=== PATIENT | female | born 1995 | race Caucasian/White ===

== ENCOUNTER 2023-07-21 21:24 | Emergency (ER) | payer OTHER ==
[2023-07-21 21:43] VITALS: BP 119/78; PULSE 56; RESP 18; TEMP 98.3; BMI 38.2
[2023-07-21] MEDS ORDERED: ACETAMINOPHEN 500 MG TABLET (FP) PO ONE (22:33)
[2023-07-21] MEDS ORDERED: ACETAMINOPHEN 500 MG TABLET (FP) ONE (22:35)
== END 2023-07-21 22:38 | disposition home or self-care (01) ==
LOC: JERFT 21:24
DX: O99.891 Other specified diseases and conditions complicating pregnancy (principal); K08.89 Other specified disorders of teeth and supporting structures; Z3A.01 Less than 8 weeks gestation of pregnancy
CPT/HCPCS: 99283-25

== ENCOUNTER 2023-07-23 22:00 | Emergency (ER) | payer OTHER ==
[2023-07-23 22:11] VITALS: BP 108/72; PULSE 73; RESP 19; TEMP 98.2; BMI 37.2
[2023-07-24 00:20] LABS: BASO % 0.4 % (0-2.0); EOS % 1.6 % (0-4.5); HEMATOCRIT 34.6 % (32.4-45.2); HEMOGLOBIN 11.3 GM/dL (10.7-15.3); LYMPH % 23.8 % (8-40); MCH 25.4 pg (25.7-33.7); MCHC 32.7 g/dl (32.0-36.0); MEAN CELL VOLUME 77.7 fl (80-96); MEAN PLT VOLUME 7.5 fl (7.5-11.1); MONO % 6.6 % (3.8-10.2); NEUT % 67.6 % (42.8-82.8); PLATELET COUNT 388 10^3/uL (134-434); RBC 4.46 M/mm3 (3.60-5.2); RDW 18.4 % (11.6-15.6); WHITE BLOOD COUNT 9.9 K/mm3 (4.0-10.0)
[2023-07-24 00:21] LABS: EPI CELLS >36 /uL (0-25.1); HYALINE CASTS 4 /uL (0-3.1); INR 1.1 (0.83-1.09); PROTHROMBIN TIME (PATIENT) 12.8 SEC (9.7-13.0); URINE APPEARANCE CLOUDY; URINE BACTERIA 175 /uL (0-1359); URINE BILIRUBIN 1+ (NEGATIVE); URINE COLOR ORANGE; URINE GLUCOSE (UA) NEGATIVE (NEGATIVE); URINE KETONE NEGATIVE (NEGATIVE); URINE LEUK ESTERASE 1+ (NEGATIVE); URINE NITRITE NEGATIVE (NEGATIVE); URINE PROTEIN 2+ (NEGATIVE); URINE RBC 3481 /uL (0-23.9); URINE WBC 170 /uL (0-25.8)
[2023-07-24 00:24] LABS: ACTIVATED PTT 33.5 SECONDS (25.2-36.5)
[2023-07-24] MEDS ORDERED: CEPHALEXIN MONOHYDRATE 500 MG CAPSULE (UD) PO ONE (00:45)
[2023-07-24 00:50] LABS: POTASSIUM 4.9 mmol/L (3.5-5.1)
[2023-07-24] MEDS ORDERED: CEPHALEXIN MONOHYDRATE 500 MG CAPSULE (UD) ONE (00:50)
[2023-07-24 00:51] LABS: CALCIUM 8.4 mg/dL (8.5-10.1)
[2023-07-24 00:52] LABS: ALBUMIN 3.2 g/dl (3.4-5.0); BLOOD UREA NITROGEN 14.4 mg/dL (7-18)
[2023-07-24 00:55] LABS: CREATININE 0.5 mg/dL (0.55-1.3)
[2023-07-24 00:56] LABS: BILIRUBIN,TOTAL 0.4 mg/dL (0.2-1); TOT PROT 7.7 g/dl (6.4-8.2)
== END 2023-07-24 01:33 | disposition home or self-care (01) ==
LOC: JER 22:00
DX: O20.0 Threatened abortion (principal); O23.91 Unspecified genitourinary tract infection in pregnancy, first trimester; R82.71 Bacteriuria; Z3A.01 Less than 8 weeks gestation of pregnancy
CPT/HCPCS: 36415; 76817-TC; 80053; 81003; 84702; 85025; 85610; 85730; 86900; 87086; 99284-25

== ENCOUNTER 2023-07-27 16:19 | Emergency (ER) | payer OTHER ==
[2023-07-27 16:32] VITALS: BP 121/63; PULSE 64; RESP 18; TEMP 98.5; BMI 37.2
== END 2023-07-27 18:47 | disposition home or self-care (01) ==
LOC: FER 16:19 → JERFT 16:19
DX: O20.9 Hemorrhage in early pregnancy, unspecified (principal); Z3A.01 Less than 8 weeks gestation of pregnancy
CPT/HCPCS: 36415; 84702; 99283-25

== ENCOUNTER 2023-07-30 18:19 | Emergency (ER) | payer OTHER ==
[2023-07-30 18:26] VITALS: BP 97/65; PULSE 59; RESP 18; TEMP 99.2; BMI 37.2
[2023-07-30 20:49] LABS: EPI CELLS 9 /uL (0-25.1); HYALINE CASTS 0 /uL (0-3.1); URINE APPEARANCE CLEAR; URINE BACTERIA 127 /uL (0-1359); URINE BILIRUBIN NEGATIVE (NEGATIVE); URINE COLOR YELLOW; URINE GLUCOSE (UA) NEGATIVE (NEGATIVE); URINE KETONE TRACE (NEGATIVE); URINE LEUK ESTERASE NEGATIVE (NEGATIVE); URINE NITRITE NEGATIVE (NEGATIVE); URINE PROTEIN NEGATIVE (NEGATIVE); URINE RBC 3 /uL (0-23.9); URINE UROBILINOGEN 0.2 mg/dL (0.2-1.0); URINE WBC 7 /uL (0-25.8)
== END 2023-07-30 22:40 | disposition home or self-care (01) ==
LOC: JERFT 18:19
DX: O20.9 Hemorrhage in early pregnancy, unspecified (principal); O26.891 Other specified pregnancy related conditions, first trimester; R10.30 Lower abdominal pain, unspecified; Z3A.08 8 weeks gestation of pregnancy
CPT/HCPCS: 36415; 76817-TC; 81003; 84702; 99284-25

== ENCOUNTER 2023-10-31 11:24 | Emergency (ER) | payer OTHER ==
[2023-10-31 11:32] VITALS: BMI 38.0
[2023-10-31 13:56] VITALS: TEMP 98.5
[2023-10-31 15:15] VITALS: BP 99/57; PULSE 73; RESP 20
== END 2023-10-31 15:15 | disposition home or self-care (01) ==
LOC: JERFT 11:24 → JER 11:24
DX: O99.891 Other specified diseases and conditions complicating pregnancy (principal); Z04.3 Encounter for examination and observation following other accident; Z3A.16 16 weeks gestation of pregnancy; W01.0XXA Fall on same level from slipping, tripping and stumbling without subsequent striking against object, initial encounter; Y92.9 Unspecified place or not applicable
CPT/HCPCS: 99283-25

== ENCOUNTER 2024-02-25 18:45 | Inpatient (IN) | payer OTHER ==
[2024-02-25 19:52] LABS: BASO % 0.2 % (0-2.0); EOS % 0.5 % (0-4.5); HEMATOCRIT 33.2 % (32.4-45.2); HEMOGLOBIN 10.7 GM/dL (10.7-15.3); LYMPH % 21.1 % (8-40); MCH 25.6 pg (25.7-33.7); MCHC 32.4 g/dl (32.0-36.0); MEAN CELL VOLUME 79.2 fl (80-96); MEAN PLT VOLUME 6.5 fl (7.5-11.1); MONO % 7.9 % (3.8-10.2); NEUT % 70.3 % (42.8-82.8); PLATELET COUNT 317 10^3/uL (134-434); RBC 4.19 M/mm3 (3.60-5.2); RDW 17.8 % (11.6-15.6); WHITE BLOOD COUNT 6.9 K/mm3 (4.0-10.0)
[2024-02-25 19:53] VITALS: BMI 41.1
[2024-02-25 19:59] LABS: INR 0.95 (0.83-1.09)
[2024-02-25] MEDS: ELECTROLYTE-148 SOLN 1,000 ML IV SCH (20:00)
[2024-02-25 20:02] LABS: ACTIVATED PTT 30.3 SECONDS (25.2-36.5)
[2024-02-25 20:10] LABS: POTASSIUM 3.9 mmol/L (3.5-5.1)
[2024-02-25 20:11] LABS: CALCIUM 9.3 mg/dL (8.5-10.1)
[2024-02-25 20:12] LABS: BLOOD UREA NITROGEN 11.9 mg/dL (7-18)
[2024-02-25 20:15] LABS: CREATININE 0.5 mg/dL (0.55-1.3)
[2024-02-25] MEDS: DINOPROSTONE 10 MG VAGINAL SUPPOSITORY VG ONE (20:15)
[2024-02-25 21:07] LABS: HIV INTERPRETATION NEGATIVE (NEGATIVE)
[2024-02-25] MEDS: INSULIN (LEVEMIR) 100 UNITS/ML UNITS SQ SCH (22:00)
[2024-02-26] MEDS ORDERED: AMPICILLIN - 1 GM in SODIUM CHLORIDE 100 ML IVPB SCH (01:00)
[2024-02-26] MEDS ORDERED: ZOLPIDEM TARTRATE 5 MG TABLET ONE (03:37)
[2024-02-26] MEDS: ZOLPIDEM TARTRATE 5 MG TABLET PO PRN (03:40)
[2024-02-26] MEDS ORDERED: FENTANYL/BUPIVACAINE/NS/PF - PCEA - 50 ML DISP.SYRIN EP ONE ×3 (07:10→16:32)
[2024-02-26] MEDS ORDERED: NALOXONE HCL 0.4 MG/ML VIAL IVPUSH PRN (07:23)
[2024-02-26] MEDS ORDERED: LIDO 2%/EPI 1:200000 PRESRVFRE (20 ML SDVIAL) ONE (07:24)
[2024-02-26] MEDS ORDERED: BUPIVACAINE HCL/PF 0.25% (2.5MG/ML) 10 ML VIAL ONE (07:24)
[2024-02-26] MEDS: FENTANYL/BUPIVACAINE/NS/PF - PCEA - 50 ML DISP.SYRIN EP SCH (07:45)
[2024-02-26] MEDS ORDERED: SODIUM CHLORIDE 100 ML IVPB ONE ×4 (08:02→22:12)
[2024-02-26] MEDS ORDERED: AMPICILLIN SODIUM 2 GM VIAL ONE (08:03)
[2024-02-26] MEDS ORDERED: OXYTOCIN 30 UNITS in 0.9% NS 30 UNIT/500 ML INFUS.BAG IVPB ONE (08:03)
[2024-02-26] MEDS: OXYTOCIN 30 UNITS in 0.9% NS 30 UNIT/500 ML INFUS.BAG IVPB SCH (08:10)
[2024-02-26] MEDS: AMPICILLIN - 2 GM in SODIUM CHLORIDE 100 ML IVPB ONE (08:10)
[2024-02-26] MEDS ORDERED: AMPICILLIN SODIUM 1 GM VIAL ONE ×2 (11:54→15:58)
[2024-02-26] MEDS: AMPICILLIN - 1 GM in SODIUM CHLORIDE 100 ML IVPB SCH (12:01)
[2024-02-26] MEDS ORDERED: OXYTOCIN 20 UNITS in 0.9% NS 20 UNIT/1,000 ML INFUS.BAG IV ONE ×2 (17:59→21:23)
[2024-02-26] MEDS ORDERED: PHENYLEPHRINE HCL 10 MG/1 ML SINGLE DOSE VIAL ONE (18:51)
[2024-02-26] MEDS ORDERED: OXYTOCIN 10 UNITS/ML VIAL ONE (18:51)
[2024-02-26] MEDS ORDERED: ONDANSETRON 4 MG/2 ML VIAL ONE (18:51)
[2024-02-26] MEDS ORDERED: ceFAZolin SODIUM 1 GM VIAL ONE (18:52)
[2024-02-26] MEDS ORDERED: morphine SULFATE/PF 1 MG/2 ML (2cc Syringe - QUVA) ONE (18:52)
[2024-02-26] MEDS ORDERED: KETOROLAC TROMETHAMINE 30 MG/1 ML VIAL ONE (18:52)
[2024-02-26] MEDS ORDERED: FENTANYL CITRATE/PF 50 MCG/ML VIAL ONE (19:20)
[2024-02-26] MEDS ORDERED: ONDANSETRON 4 MG/2 ML VIAL IVPB PRN (20:33)
[2024-02-26] MEDS ORDERED: ACETAMINOPHEN 325 MG TABLET (FP) PO PRN (20:33)
[2024-02-26] MEDS: SODIUM CHLORIDE 1,000 ML IV STA (21:30)
[2024-02-26] MEDS: OXYTOCIN 20 UNITS in 0.9% NS 20 UNIT/1,000 ML INFUS.BAG IV SCH (21:35)
[2024-02-26] MEDS ORDERED: ACETAMINOPHEN INJECTION 100 ML IVPB ONE (21:45)
[2024-02-26] MEDS: ACETAMINOPHEN 1000 MG/100 ML BAG IVPB PRN (21:51)
[2024-02-26] MEDS: SENNOSIDES/DOCUSATE COMBO (SENNA PLUS) TABLET (UD) PO SCH (22:09)
[2024-02-26] MEDS ORDERED: CEFAZOLIN SODIUM 2 GM VIAL ONE (22:12)
[2024-02-26] MEDS: CEFAZOLIN SODIUM 2 GM in DEXTROSE 5%-WATER 100 ML IVPB SCH (22:28)
[2024-02-27] MEDS: metFORMIN HCL 500 MG TABLET (FP) PO ONE (00:17)
[2024-02-27] MEDS: INSULIN (LEVEMIR) 100 UNITS/ML UNITS SQ ONE (00:18)
[2024-02-27] MEDS ORDERED: INSULIN (LEVEMIR) 100 UNITS/ML UNITS SQ ONE (00:27)
[2024-02-27] MEDS: CEFAZOLIN SODIUM 2 GM in DEXTROSE 5%-WATER 100 ML IVPB SCH (02:41)
[2024-02-27 08:08] LABS: BASO % 0.2 % (0-2.0); EOS % 0.5 % (0-4.5); HEMATOCRIT 29.3 % (32.4-45.2); HEMOGLOBIN 9.4 GM/dL (10.7-15.3); LYMPH % 15.2 % (8-40); MCH 25.5 pg (25.7-33.7); MCHC 32.1 g/dl (32.0-36.0); MEAN CELL VOLUME 79.3 fl (80-96); MEAN PLT VOLUME 6.4 fl (7.5-11.1); MONO % 9.5 % (3.8-10.2); NEUT % 74.6 % (42.8-82.8); PLATELET COUNT 261 10^3/uL (134-434); RBC 3.69 M/mm3 (3.60-5.2); RDW 18.7 % (11.6-15.6)
[2024-02-27] MEDS: SIMETHICONE 80 MG TAB.CHEW (FP) PO PRN (08:23)
[2024-02-27] MEDS: IBUPROFEN 600 MG TABLET (FP) PO PRN (08:23)
[2024-02-27] MEDS: SODIUM CHLORIDE 500 ML IV STA (08:25)
[2024-02-27 08:34] LABS: POTASSIUM 4.6 mmol/L (3.5-5.1)
[2024-02-27 08:37] LABS: BLOOD UREA NITROGEN 9.7 mg/dL (7-18)
[2024-02-27 08:40] LABS: CREATININE 0.5 mg/dL (0.55-1.3)
[2024-02-27 08:41] LABS: CALCIUM 7.8 mg/dL (8.5-10.1)
[2024-02-27] MEDS: DIPHTH,PERTUSS(ACELL),TET 0.5 ML DISP.SYRIN IM ONE (10:06)
[2024-02-27 11:15] VITALS: RESP 18
[2024-02-27] MEDS: INSULIN ASPART SLIDING SCALE (NOVOLOG) 1 VIAL SQ SCH (11:22)
[2024-02-27] MEDS: metFORMIN HCL 500 MG TABLET (FP) PO SCH ×2 (11:23→16:37)
[2024-02-27] MEDS: ENOXAPARIN NA (PORCINE) 40 MG/0.4 ML DISP.SYRIN SQ SCH (16:37)
[2024-02-27] MEDS ORDERED: ENOXAPARIN NA (PORCINE) 30 MG/0.3 ML DISP.SYRIN SQ SCH (17:00)
[2024-02-27] MEDS: IBUPROFEN 800 MG/8 ML IJ IVPB PRN (20:30)
[2024-02-27] MEDS ORDERED: BISACODYL 10 MG SUPP.RECT RC PRN (20:34)
[2024-02-28] MEDS: oxyCODONE HCL 5 MG TABLET PO PRN (09:05)
[2024-02-28 21:04] VITALS: BP 110/74; PULSE 72; TEMP 98.9
== END 2024-02-29 13:40 | disposition home or self-care (01) | DRG 540 ==
LOC: JLDR 18:45 → J3W 02-26 23:00
PROVIDERS: ADMIT Specialist; ATTEND Specialist
PROC: 3E0P7VZ Introduction of Hormone into Female Reproductive, Via Natural or Artificial Opening (ICD-10-PCS; 2024-02-25)
PROC: 10D00Z1 Extraction of Products of Conception, Low, Open Approach (ICD-10-PCS; principal; 2024-02-26)
DX: O24.429 Gestational diabetes mellitus in childbirth, unspecified control (principal); O99.824 Streptococcus B carrier state complicating childbirth; O62.0 Primary inadequate contractions; O32.4XX0 Maternal care for high head at term, not applicable or unspecified; Z37.0 Single live birth
CPT/HCPCS: 36415; 80048; 82962; 85025; 85610; 85730; 86780; 86850; 86900; 86901; 87389; 88307-TC; 90715; J0131

== ENCOUNTER 2024-09-26 08:05 | Observation (INO) | payer OTHER ==
[2024-09-26] MEDS ORDERED: ACETAMINOPHEN INJECTION 100 ML ONE (08:46)
[2024-09-26] MEDS ORDERED: morphine SULFATE 4 MG/ML VIAL ONE ×2 (08:46→14:05)
[2024-09-26] MEDS: morphine SULFATE 4 MG/ML VIAL IVPUSH ONE ×2 (09:17→15:24)
[2024-09-26] MEDS: ACETAMINOPHEN 1000 MG/100 ML BAG IVPB ONE ×2 (09:19→21:53)
[2024-09-26 09:26] LABS: BASO % 0.2 % (0-2.0); EOS % 0.4 % (0-4.5); HEMATOCRIT 37.4 % (32.4-45.2); HEMOGLOBIN 11.8 GM/dL (10.7-15.3); MCH 25.7 pg (25.7-33.7); MCHC 31.5 g/dl (32.0-36.0); MEAN CELL VOLUME 81.4 fl (80-96); MEAN PLT VOLUME 6.9 fl (7.5-11.1); MONO % 3.6 % (3.8-10.2); NEUT % 86.8 % (42.8-82.8); PLATELET COUNT 291 10^3/uL (134-434); RDW 14.7 % (11.6-15.6); WHITE BLOOD COUNT 12.7 K/mm3 (4.0-10.0)
[2024-09-26 09:31] LABS: PROTHROMBIN TIME (PATIENT) 11.3 SEC (9.7-13.0)
[2024-09-26 10:17] LABS: POTASSIUM 3.7 mmol/L (3.5-5.1)
[2024-09-26 10:19] LABS: EPI CELLS >36 /uL (0-25.1); HYALINE CASTS 1 /uL (0-3.1); URINE APPEARANCE CLOUDY; URINE BACTERIA >9,000 /uL (0-1359); URINE BILIRUBIN NEGATIVE (NEGATIVE); URINE COLOR YELLOW; URINE GLUCOSE (UA) NEGATIVE (NEGATIVE); URINE KETONE NEGATIVE (NEGATIVE); URINE LEUK ESTERASE 1+ (NEGATIVE); URINE NITRITE POSITIVE (NEGATIVE); URINE PROTEIN NEGATIVE (NEGATIVE); URINE RBC 21 /uL (0-23.9); URINE UROBILINOGEN 0.2 mg/dL (0.2-1.0); URINE WBC 167 /uL (0-25.8)
[2024-09-26 10:19] LABS: CALCIUM 8.6 mg/dL (8.5-10.1)
[2024-09-26 10:20] LABS: ALBUMIN 3.4 g/dl (3.4-5.0); BLOOD UREA NITROGEN 9.8 mg/dL (7-18)
[2024-09-26 10:23] LABS: CREATININE 0.6 mg/dL (0.55-1.3)
[2024-09-26 10:24] LABS: BILIRUBIN,TOTAL 0.4 mg/dL (0.2-1)
[2024-09-26 10:25] LABS: TOT PROT 7.1 g/dl (6.4-8.2)
[2024-09-26] MEDS ORDERED: CEFTRIAXONE 1 GM/50 ML BAG ONE (11:24)
[2024-09-26] MEDS ORDERED: KETOROLAC TROMETHAMINE 15 MG/ML VIAL ONE (11:24)
[2024-09-26] MEDS: KETOROLAC TROMETHAMINE 15 MG/ML VIAL IVPUSH ONE (11:42)
[2024-09-26] MEDS: CEFTRIAXONE 1,000 MG in DEXTROSE 5%-WATER - 50 ML IVPB ONE (11:43)
[2024-09-26] MEDS ORDERED: INSULIN REGULAR HUMAN 100 UNITS/ML *VIAL ONE (12:28)
[2024-09-26] MEDS ORDERED: MAGNESIUM SULFATE IN WATER 2 GM/50 ML IVPB IVPB ONE (12:32)
[2024-09-26] MEDS ORDERED: METOCLOPRAMIDE HCL INJECTION 10 MG/2 ML VIAL ONE (12:33)
[2024-09-26] MEDS: LACTATED RINGERS SOLUTION 1,000 ML/1,000 ML INFUS.BAG IV SCH (17:05)
[2024-09-26] MEDS: ACETAMINOPHEN 500 MG TABLET (FP) PO PRN (23:45)
[2024-09-27 00:08] VITALS: BMI 40.7
[2024-09-27 10:14] LABS: BASO % 0.2 % (0-2.0); EOS % 1.2 % (0-4.5); HEMATOCRIT 31.8 % (32.4-45.2); HEMOGLOBIN 10.4 GM/dL (10.7-15.3); LYMPH % 23.1 % (8-40); MCH 26.7 pg (25.7-33.7); MCHC 32.9 g/dl (32.0-36.0); MEAN CELL VOLUME 81.4 fl (80-96); MEAN PLT VOLUME 6.9 fl (7.5-11.1); MONO % 6.4 % (3.8-10.2); NEUT % 69.1 % (42.8-82.8); PLATELET COUNT 257 10^3/uL (134-434); RBC 3.91 M/mm3 (3.60-5.2); RDW 14.6 % (11.6-15.6); WHITE BLOOD COUNT 6.5 K/mm3 (4.0-10.0)
[2024-09-27 10:37] LABS: POTASSIUM 3.7 mmol/L (3.5-5.1)
[2024-09-27 10:40] LABS: CALCIUM 8.3 mg/dL (8.5-10.1)
[2024-09-27 10:41] LABS: BLOOD UREA NITROGEN 8.2 mg/dL (7-18)
[2024-09-27 10:44] LABS: CREATININE 0.5 mg/dL (0.55-1.3)
[2024-09-27] MEDS: CEFTRIAXONE 1 G/50 ML PREMIX 50 ML IVPB SCH (13:38)
[2024-09-27] MEDS: KETOROLAC TROMETHAMINE 15 MG/ML VIAL IVPUSH ONE (22:53)
[2024-09-28 09:42] LABS: BASO % 0.1 % (0-2.0); EOS % 1.6 % (0-4.5); HEMOGLOBIN 11.8 GM/dL (10.7-15.3); MCH 26.4 pg (25.7-33.7); MCHC 32.7 g/dl (32.0-36.0); MEAN CELL VOLUME 80.8 fl (80-96); MEAN PLT VOLUME 7.1 fl (7.5-11.1); MONO % 5.7 % (3.8-10.2); NEUT % 69.6 % (42.8-82.8); PLATELET COUNT 316 10^3/uL (134-434); RBC 4.46 M/mm3 (3.60-5.2); RDW 15.2 % (11.6-15.6); WHITE BLOOD COUNT 6.2 K/mm3 (4.0-10.0)
[2024-09-28 10:33] LABS: POTASSIUM 4.1 mmol/L (3.5-5.1)
[2024-09-28 10:55] LABS: BLOOD UREA NITROGEN 9.9 mg/dL (7-18); CALCIUM 8.9 mg/dL (8.5-10.1); MAGNESIUM 2.3 mg/dL (1.8-2.4)
[2024-09-28 10:57] LABS: ALBUMIN 3.2 g/dl (3.4-5.0)
[2024-09-28 10:58] LABS: CREATININE 0.5 mg/dL (0.55-1.3)
[2024-09-28 11:00] LABS: BILIRUBIN,TOTAL 0.4 mg/dL (0.2-1); TOT PROT 7.6 g/dl (6.4-8.2)
[2024-09-28 14:38] VITALS: RESP 20
[2024-09-28 15:21] VITALS: BP 120/76; PULSE 70; TEMP 98.4
== END 2024-09-28 15:20 | disposition home or self-care (01) ==
LOC: JER 08:05 → JERBED 14:01 → INTOOBSV 14:01 → UNDOADMOB 14:01 → JERBED 14:50 → J8W 23:28
PROVIDERS: ADMIT Internal Medicine; ATTEND Nurse Practitioner Family
PROC: 3E033NZ Introduction of Analgesics, Hypnotics, Sedatives into Peripheral Vein, Percutaneous Approach (ICD-10-PCS; principal; 2024-09-26)
PROC: 3E0333Z Introduction of Anti-inflammatory into Peripheral Vein, Percutaneous Approach (ICD-10-PCS; 2024-09-26)
PROC: 3E03329 Introduction of Other Anti-infective into Peripheral Vein, Percutaneous Approach (ICD-10-PCS; 2024-09-26)
PROC: 3E033NZ Introduction of Analgesics, Hypnotics, Sedatives into Peripheral Vein, Percutaneous Approach (ICD-10-PCS; 2024-09-26)
PROC: 3E033GC Introduction of Other Therapeutic Substance into Peripheral Vein, Percutaneous Approach (ICD-10-PCS; 2024-09-26)
DX: N39.0 Urinary tract infection, site not specified (principal); E11.9 Type 2 diabetes mellitus without complications; J45.909 Unspecified asthma, uncomplicated; E66.01 Morbid (severe) obesity due to excess calories; Z68.41 Body mass index [BMI] 40.0-44.9, adult; Z29.9 Encounter for prophylactic measures, unspecified; R10.9 Unspecified abdominal pain; Z86.32 Personal history of gestational diabetes; K76.0 Fatty (change of) liver, not elsewhere classified
CPT/HCPCS: 36415; 74176-TC; 74177-TC; 76705-TC; 76830-TC; 80048; 80053; 81003; 82962; 83036; 83690; 83735; 84703; 85025; 85610; 85730; 86850; 86900; 86901; 87086; 87186; 96361; 96365; 96366; 96367; 96375; 96376; 99285-25; G0378; J0131